=== PATIENT | female | born 1970 | race Hispanic/Latino ===

== ENCOUNTER 2022-03-29 22:04 | Emergency (ER) | payer SELFPAY ==
[~2022-03-29] VITALS: Ht 160 cm; Wt 68.0 kg
[~2022-03-29 22:04] MED LIST: TYLENOL PO
== END 2022-03-30 | disposition home or self-care (01) ==
LOC: FSED 22:12
DX: R00.2 Palpitations (principal)
CPT/HCPCS: 71046; 80048; 82553; 84484; 85025; 93005; 99283